=== PATIENT | female | born 1970 | race Caucasian/White ===

== ENCOUNTER 2019-08-29 10:36 | Emergency (ER) | payer MEDICAID ==
[~2019-08-29] VITALS: Ht 162.6 cm; Wt 50.3 kg
[2019-08-29] MEDS ORDERED: FAMOTIDINE/PF INJ 20 MG/2 ML VIAL IV ONE ×2 (11:30→11:41)
[2019-08-29] MEDS ORDERED: VANCOMYCIN 1 GM in IV D5W 250 ML IV ONE (11:30)
[2019-08-29] MEDS ORDERED: methylPREDNISolone SOD SUCC 125 MG/2ML VIAL IV ONE (11:30)
[2019-08-29] MEDS ORDERED: diphenhydrAMINE HCL 50 MG/ML VIAL IV ONE (11:30)
[2019-08-29] MEDS: LEVOFLOXACIN 750 MG /D5W 150ML PIGGYBACK IV ONE ×3 (11:36→13:35)
[2019-08-29] MEDS ORDERED: diphenhydrAMINE HCL 50 MG/ML VIAL ONE (11:41)
[2019-08-29] MEDS ORDERED: methylPREDNISolone SOD SUCC 125 MG/2ML VIAL ONE (11:41)
[2019-08-29 11:52] LABS: BASOPHILS # (AUTO) 0.1 /CMM (0.0-0.2); BASOPHILS % (AUTO) 0.4 % (0.0-2.0); EOSINOPHILS % (AUTO) 0.2 % (0.0-6.0); HEMATOCRIT 44 % (33-45); HEMOGLOBIN 14.7 g/dL (11.5-14.8); LYMPHOCYTES # (AUTO) 1.3 /CMM (0.8-4.8); LYMPHOCYTES % (AUTO) 8.2 % (20.0-44.0); MEAN CORPUSCULAR HGB CONC 34 g/dl (31.0-36.0); MEAN CORPUSCULAR VOLUME 92 fL (82-100); MONOCYTES % (AUTO) 6.7 % (2.0-12.0); NEUTROPHILS % (AUTO) 84.5 % (43.0-81.0); PLATELET COUNT (AUTO) 271 /CMM (150-450); RED BLOOD CELL COUNT(AUTO) 4.77 MIL/uL (4.0-5.2); WHITE BLOOD COUNT (AUTO) 15.4 K/uL (4.3-11.0)
[2019-08-29] MEDS ORDERED: LEVOFLOXACIN 750 MG /D5W 150ML 0 ML IV ONE (11:55)
[2019-08-29 12:00] LABS: CALCIUM, SERUM 9.7 mg/dL (8.5-10.1); CREATININE 0.8 mg/dL (0.6-1.3); POTASSIUM 3.6 mmol/L (3.5-5.1)
[2019-08-29] MEDS ORDERED: CT SWABBABLE VALVE TRANS SET 1 EA INFUS.SET MC ONE (12:08)
[2019-08-29] MEDS ORDERED: IOHEXOL-300 100 ML VIAL IV ONE (12:08)
[2019-08-29] MEDS ORDERED: IV NS 0.9% 250 ML IV ONE (12:09)
--- NOTE | 2019-08-29 12:13 | NUR ---
PT SENT TO CT
[2019-08-29 12:14] LABS: ALBUMIN 4.2 g/dL (3.4-5.0); BILIRUBIN,DIRECT 0.3 mg/dL (0.0-0.2); BILIRUBIN,TOTAL 1.6 mg/dL (0.2-1.0)
[2019-08-29 14:33] VITALS: BP 112/63
== END 2019-08-29 14:34 | disposition home or self-care (01) ==
LOC: ER 10:47
DX: T78.40XA Allergy, unspecified, initial encounter (principal); L03.211 Cellulitis of face; Z88.0 Allergy status to penicillin; Z60.2 Problems related to living alone; X58.XXXA Exposure to other specified factors, initial encounter
CPT/HCPCS: 36415; 70487; 80048; 80076; 83605; 84145; 85025; 87040 ×2; 96365; 96367; 96375; 99284; J1200; J1956; J2930; J3370; J3490; J7030; J7040; J7050; J7060; Q9967

== ENCOUNTER 2022-02-03 16:50 | Emergency (ER) | payer MEDICAID, OTHER ==
[~2022-02-03] VITALS: Ht 160 cm; Wt 54.4 kg
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
--- NOTE | 2022-02-03 18:57 | NUR ---
DR HERNANDEZ AT BEDSIDE
--- NOTE | 2022-02-03 19:17 | NUR ---
REPORT GIVEN TO SHERICE BARRON FOR DIMITRI
--- NOTE | 2022-02-03 19:22 | NUR ---
BALANCE ENGINEER AT PT'S BEDSIDE
[2022-02-03 20:15] VITALS: BP 121/69
--- NOTE | 2022-02-03 20:27 | NUR ---
Patient discharged to home in stable condition. Written and verbal after care instructions given. Patient verbalizes understanding of instruction.
== END 2022-02-03 20:30 | disposition home or self-care (01) ==
LOC: ER 16:53
DX: M54.50 Low back pain, unspecified (principal); M25.562 Pain in left knee; M25.561 Pain in right knee; F41.9 Anxiety disorder, unspecified; Z88.0 Allergy status to penicillin; Z60.2 Problems related to living alone
CPT/HCPCS: 72110-TC; 73564-TC